=== PATIENT | female | born 1940 | race Caucasian/White ===

== ENCOUNTER → 2024-03-22 | Outpatient (CLI) | payer BC, MEDICARE ==
[2024-03-22 11:07] VITALS: BP 142/85; PULSE 68; RESP 17; TEMP 97.9
--- NOTE | 2024-03-22 11:43 | P.GSCN ---
History of Present Illness Consult date: 03/22/24 Reason for Consult: IDC left breast Requesting physician: Rajat Jennings History of present illness: Lizette is an 83 year old female seen in consultation for Dr. Jennings regarding a biopsy proven left breast cancer. The patient had a bilateral mammogrma on 02-28-24, which led to a left breast ultrasound. This showed a 2.1 cm lesion for which biopsy was done on 02-28-24. This was + for IDC ER+Pr+HEr2- G2. She has been able to feel the lump for about 1 year. It has increased in size. She has never had other surgery on her breast. She had a PET scan ordered which was not approved by her insurance CAffiene: 3 cans/day nicotine: none chocolate: none Family History: ( she has 9 sisters and 5 brothers) mother: breast cancer of this 2 sisters: breast cancer brother: bone cancer Hormonal History: menarche: 16 breast fed: no, age at first : 20's menopause: ? age Surgical History: gallbladder bladder suspension times three appy cataract surgery Medical History: arthritis [place] (6 years ago) Social History: nicotine: none alcohol: none drugs: none Review of Systems - Constitutional Denies fever, Denies weight loss - EENT Eyes: denies blurred vision Ears: bilateral: decreased hearing Ears, nose, mouth and throat: Denies dysphagia - Breasts bilateral: as per HPI - Cardiovascular Reports shortness of breath, Denies chest pain - Respiratory Denies cough, Denies 7 - Gastrointestinal Reports as per HPI - Genitourinary Genitourinary: Denies dysuria, Denies hematuria Menstruation: Reports postmenopausal - Musculoskeletal Musculoskeleta Comment(s): arthritis - Integumentary Denies rash, Denies unusual bruising - Neurological Neurologic Comment(s): light headed at times Reports syncope, Denies headaches - Endocrine Reports as per HPI - Hematologic/Lymphatic Denies easy bleeding, Denies easy bruising - Allergic/Immunologic Reports seasonal allergies Past Medical History History of Any Multi-Drug Resistant Organisms: None Reported Smoking Status: Never smoker Surgical - Exam Vital Signs Temp Pulse Resp BP Pulse Ox 97.9 F 68 17 142/85 97 03/22/24 11:04 03/22/24 11:04 03/22/24 11:04 03/22/24 11:04 03/22/24 11:04 - General no distress - Eyes normal ocular movement - ENT difficulty hearing - Neck trachea midline - Respiratory normal respiratory effort, clear to auscultation - Cardiovascular Rhythm: regular Heart Sounds: normal: S1, S2 - Abdomen Abdomen: soft, non tender, no guarding, no rigid, no rebound - Integumentary normal turgor - Neurologic no disoriented, no combative - Musculoskeletal normal gait - Psychiatric oriented to time, oriented to person, oriented to place, speech is normal, memory intact Breast Exam: BRA: 42C Inspection: Fullness left chest wall Palpation: Right breast: Multi positional exam no dominant masses or nodules of concern Right axilla: No adenopathy of concern Left breast: Multi positional exam no discrete dominant masses or nodules of concern within the breast however when the parenchyma upon the chest wall there is approximately a 2 x 2 cm lesion which is freely mobile Left axilla: No adenopathy of concern Results Mammogram and ultrasound personally reviewed and discussed with radiology Dr. Long Assessment and Plan Assessment: Impression Left breast invasive ductal carcinoma Arthritis Plan: Presentation of case at tumor board left breast needle localization lumpectomy, consider sentinel node biopsy The patient was seen in conjunction with her son.
== END ==
LOC: WWCWWP 10:46
PROVIDERS: ATTEND Surgery
DX: C50.912 Malignant neoplasm of unspecified site of left female breast (principal); M19.90 Unspecified osteoarthritis, unspecified site; Z80.3 Family history of malignant neoplasm of breast; Z17.0 Estrogen receptor positive status [ER+]

== ENCOUNTER → 2024-04-28 | Outpatient (CLI) | payer BC, MEDICARE ==
[2024-04-28 12:15] VITALS: BP 126/63; PULSE 98; RESP 18; TEMP 98.4
--- NOTE | 2024-04-28 12:21 | P.BCPO ---
Progress Note - Text Progress Note Date: 04/28/24 Just send the patient is an 83-year-old female status post left breast lumpectomy and sentinel node biopsy [id number]. The lesion was an invasive ductal carcinoma 2.2 cm in size completely removed with all margins negative. 1 sentinel node was removed which was negative. The patient postoperatively is doing well without complaints. Examination: Lungs: Clear Heart: Regular rate and rhythm Incision breast and axilla clean and dry Plan: Appointment with radiation oncology in [place] Appointment medical oncology Follow-up here in 4 months CC: Dr. Jennings Post Op Education - Post Op Education Post Op Education Provided Date: 04/28/24 - Functional Assessment Performed?: Yes (arm abduction passed) Referal Provided?: Yes (radiation and medical onc)
== END ==
LOC: WWCWWP 11:27
PROVIDERS: ATTEND Surgery
DX: Z48.817 Encounter for surgical aftercare following surgery on the skin and subcutaneous tissue (principal); Z85.3 Personal history of malignant neoplasm of breast

== ENCOUNTER → 2024-08-03 | Outpatient (CLI) | payer MEDICARE, BC ==
[2024-08-03 09:12] VITALS: BP 142/80; PULSE 70; RESP 17; TEMP 98.2
--- NOTE | 2024-08-03 09:38 | P.PN ---
Subjective Progress Note Date: 08/03/24 Principal diagnosis: stage 1 left breast IDC Lizette is an 83-year-old female diagnosed with a left breast invasive ductal carcinoma, ductal carcinoma in situ status postlumpectomy on 04-18-2024. 1 sentinel node negative. The patient presents [id number] for follow-up evaluation. Referral was sent to medical oncology. She was seen by radiation oncology in [place]. She saw a medical oncologist and told to follow up in three months. She also had radiation oncology in [place] and is done with radiation therapy. She had 20 treatments. She tolerated this without difficulty. She has no complaints at this time. Objective - Vital Signs Vital signs: Vital Signs Temp 98.2 F 08/03/24 09:07 Pulse 70 08/03/24 09:07 Resp 17 08/03/24 09:07 BP 142/80 08/03/24 09:07 Pulse Ox 98 08/03/24 09:07 FiO2 Intake & Output 08/02/24 08/03/24 08/03/24 18:59 06:59 18:59 Weight 55.792 kg - Constitutional General appearance: Present: cooperative - EENT Eyes: Present: EOMI ENT: Present: hearing grossly normal - Neck Neck: Present: normal ROM - Respiratory Respiratory: bilateral: CTA - Cardiovascular Heart sounds: normal: S1, S2 - Gastrointestinal General gastrointestinal: Present: soft - Integumentary Integumentary: Present: normal turgor - Psychiatric Psychiatric: Present: A&O x's 3, appropriate affect, intact judgment & insight - Additional findings Additional findings: Breast Exam: BRA: 32B Inspection: Radiation changes left breast Palpation: Right breast: Multi positional exam fibrocystic changes no dominant masses or nodules of concern Right axilla: No adenopathy of concern Left breast: Multi positional exam well-healed scar from prior surgery, no dominant masses or nodules of concern, postradiation and surgical changes Left axilla: No adenopathy of concern Assessment and Plan Assessment: Impression: Plan: Patient doing well status post left breast lumpectomy and radiation therapy for stage I invasive ductal carcinoma no evidence of recurrence Bilateral mammogram in February 2025 with appointment at that time Continue to follow with radiation oncology Follow with medical oncology
== END ==
LOC: WWCWWP 08:27
PROVIDERS: ATTEND Surgery
DX: R92.8 Other abnormal and inconclusive findings on diagnostic imaging of breast (principal); Z90.12 Acquired absence of left breast and nipple; Z85.3 Personal history of malignant neoplasm of breast; Z92.3 Personal history of irradiation